=== PATIENT | male | born 1970 | race Hispanic/Latino ===

== ENCOUNTER → 2019-09-05 | Day surgery (SDC) | payer OTHER ==
[2019-09-02 13:33] LABS: BLOOD UREA NITROGEN 12 mg/dL (7-26); BUN/CREATININE RATIO 12 (6-25); CALCIUM 10.3 mg/dL (8.4-10.2); CARBON DIOXIDE 27 mmol/L (22-29); CHLORIDE 99 mmol/L (98-107); CREATININE, SERUM 1.02 mg/dL (0.72-1.25); EST GLOMERULAR FILTRATION RATE > 60 ML/MIN (60-); GLUCOSE 176 mg/dL (74-118); SODIUM 137 mmol/L (136-145)
--- NOTE | 2019-09-02 13:39 | Diagnostic Imaging Report ---
EXAM: ABDOMEN-1VIEW ([facility]) DATE: 09/02/2019 12:36 PM INDICATION: Preoperative evaluation, ESWL COMPARISON: None FINDINGS: Bowel gas pattern appears nonobstructive. Bowel gas partially obscures renal shadows. Pigtail drainage catheter noted within the left upper quadrant likely representing a percutaneous nephrostomy catheter. Calcifications noted within the left upper quadrant measuring up to 11 mm which likely represent renal stones. Subcentimeter calcifications noted within the pelvis which likely represent phleboliths. No other abnormal intra-abdominal calcification is appreciated. No acute osseous abnormality identified. IMPRESSION: Left-sided nephrolithiasis. Presumed left-sided percutaneous nephrostomy catheter identified. Signed by: Dr. Pérez Irving MD on 09/02/2019 1:36 PM
[~2019-09-05] MED LIST: ACETAMINOPHEN 1000 MG/100 ML 100 ML IV ONE; CEFTRIAXONE SOD 1 GM/NS 50 ML 50 ML IV ONE; FENTANYL CITRATE/PF 100MCG/2 ML INJ ONE; GLIPIZIDE5 MG PO; LIDOCAINE HCL 2% LOCAL INJ 5 ML SDV VIAL INJ ONE; LISINOPRIL2.5 MG PO; MIDAZOLAM HCL 2 MG/2 ML VIAL ONE; ONDANSETRON HCL INJ 2MG/ML 2ML 2 MG/ML VIAL ONE; PHENYLEPHRINE HCL 1% 10 MG/ML VIAL ONE; PROPOFOL IV EMULSION 10 MG/ML 20 ML VIAL ONE; SEVOFLURANE INHAL SOLN 250 ML PEN BTL ONE; SMZ/TMP DS PO; XIGDUO XR 5 MG1 EAC1 PO
--- OUTSIDE RECORDS SUMMARY | 2019-09-05 05:28 | XMS REPORT ---
Author Author [facility] Address Unknown Phone Unavailable Care Team Providers Care Jewel Bearing Broacher Name Role Phone SHAR MEI Unavailable Unavailable Problems This patient has no known problems. Allergies, Adverse Reactions, Alerts This patient has no known allergies or adverse reactions. Medications This patient has no known medications. Results Test Description Test Time Test Comments Text Results Atomic Results Result Comments ABDOMEN-1VIEW ([facility]) 2019-09-02 13:33:00 [place] [address] Patient Name: EARLENE WORTHINGTON MR #: [id number] : 1970 Age/Sex: 49/M Req #: [id number] Adm Physician: Ordered by: SHAR MEI MD Report #: [id number] Location: OR Room/Bed: Procedure: [id number] DX/ABDOMEN-1VIEW ([facility]) Exam Date: Exam Time: REPORT STATUS: Signed EXAM: ABDOMEN-1VIEW ([facility]) DATE: 09/02/2019 12:36 PM INDIC ATION: Preoperative evaluation, ESWL COMPARISON: None FINDINGS: Bowel gas pattern appears nonobstructive. Bowel gas partially obscures renal shadows. Pigtail drainage catheter noted within the left upper quadrant likely representing a percutaneous nephrostomy catheter. Calcifications noted within the left upper quadrant measuring up to 11 mm which likely represent renal stones. Subcentimeter calcifications noted within the pelvis which likely represent phleboliths. No other abnormal intra-abdominal calcification is appreciated. No acute osseous abnormality identified. IMPRESSION: Left-sided nephrolithiasis. Presumed left-sided percutaneous nephrostomy catheter identified. Signed by: Dr. Pérez Irving MD on 09/02/2019 1:36 PM Dictated By: PÉREZ IRVING MD [id number] Transcribed By: SUMAYA on 09/02/19 1335 COPY TO: SHAR MEI MD
[2019-09-05 09:40] VITALS: BP 112/75
--- NOTE | 2019-09-05 16:42 | Operative Report ---
DATE OF PROCEDURE: 09/05/2019 SURGEON: Leon Esposito MD PREOPERATIVE DIAGNOSES: 1. Left ureteral calculus. 2. Left renal calculus. 3. Left percutaneous nephrostomy. 4. Left hydronephrosis. POSTOPERATIVE DIAGNOSES: 1. Left ureteral calculus. 2. Left renal calculus. 3. Left percutaneous nephrostomy. 4. Left hydronephrosis. PROCEDURE: 1. Staged shock wave lithotripsy on left side. 2. Supervision of fluoroscopy. ANESTHESIA: General. ESTIMATED BLOOD LOSS: Minimal. COMPLICATIONS: None. INDICATIONS FOR PROCEDURE: Mr. Patterson is a very pleasant 49-year-old male with a history of obstructing left ureteral calculus with left renal calculus, status post nephrostomy at [facility], now presenting for definitive management of UPJ stone. He voiced understanding of the options, alternatives, risks, and benefits, and elected to proceed. PROCEDURE IN DETAIL: After informed consent was obtained, the patient was taken to the operative suite, placed supine on the operating table, and underwent general anesthesia by Anesthesia Service. Stone was localized in the X, Y, and Z planes. A total of 3000 shocks were delivered to the 8 mm left ureteral calculus and fragmentation seen. The patient tolerated the procedure well and was transferred to the recovery room in excellent condition. Supervision of fluoroscopy: I was present for the entire procedure and supervised fluoroscopy. There was no radiologist present. Total dosage was 52.64 mg/sq m. Leon Esposito MD ES/MODL /[id number]
== END | disposition home or self-care (01) ==
LOC: OR 05:25
PROVIDERS: ATTEND Urology
DX: N20.2 Calculus of kidney with calculus of ureter (principal); N13.30 Unspecified hydronephrosis; Z93.6 Other artificial openings of urinary tract status; N39.0 Urinary tract infection, site not specified; E11.9 Type 2 diabetes mellitus without complications; Z01.810 Encounter for preprocedural cardiovascular examination; Z01.812 Encounter for preprocedural laboratory examination; Z79.84 Long term (current) use of oral hypoglycemic drugs; Z68.37 Body mass index [BMI] 37.0-37.9, adult; Z84.1 Family history of disorders of kidney and ureter
CPT/HCPCS: 36415 ×2; 50590; 74018; 80048; 82948; 93005; J0131; J0696; J2001; J2250; J2370; J2405; J2704; J3010

== ENCOUNTER → 2020-07-13 | Outpatient (CLI) | payer OTHER ==
[~2020-07-13] MED LIST changes: -ACETAMINOPHEN 1000 MG/100 ML 100 ML IV ONE; -CEFTRIAXONE SOD 1 GM/NS 50 ML 50 ML IV ONE; -FENTANYL CITRATE/PF 100MCG/2 ML INJ ONE; -LIDOCAINE HCL 2% LOCAL INJ 5 ML SDV VIAL INJ ONE; -MIDAZOLAM HCL 2 MG/2 ML VIAL ONE; -ONDANSETRON HCL INJ 2MG/ML 2ML 2 MG/ML VIAL ONE; -PHENYLEPHRINE HCL 1% 10 MG/ML VIAL ONE; -PROPOFOL IV EMULSION 10 MG/ML 20 ML VIAL ONE; -SEVOFLURANE INHAL SOLN 250 ML PEN BTL ONE
== END ==
LOC: RAD 09:00
PROVIDERS: ATTEND Urology
DX: N20.0 Calculus of kidney (principal)
CPT/HCPCS: 74018